=== PATIENT | male | born 1950 | race Caucasian/White ===

== ENCOUNTER 2017-10-30 09:24 | Day surgery (SDC) | payer MEDICARE, OTHER ==
[2017-10-30] VITALS (13 sets, daily range): BP systolic 135–155; BP diastolic 83–97; PULSE 62–102; RESP 16–22; TEMP 98–98.6; O2SAT 93–96
[~2017-10-30] VITALS: Ht 175.3 cm; Wt 133.0 kg
[~2017-10-30 09:24] MED LIST: ASPI-147 PO; ATOR40TA16 PO; LOSA100T PO; PRAS10TA PO
[2017-10-30] MEDS ORDERED: IOHEXOL 350 MG/ML 100 ML BTL (for Cath Lab) OTHER ONE (09:25)
[2017-10-30] MEDS ORDERED: METO1TAB42 PO (10:19)
[2017-10-30] MEDS ORDERED: CARB200T PO (10:19)
[2017-10-30 10:45] LABS: AUTOMATED NEUTROPHIL # 3.8 TH/MM3 (1.8-7.7); BASOPHIL % 0.4 % (0.0-2.0); EOSINOPHIL # 0.2 TH/MM3 (0-0.4); EOSINOPHIL % 2.9 % (0.0-4.0); HEMATOCRIT 38.9 % (39.0-51.0); HEMO FLAGS DIFF FINAL; LYMPH % 29.4 % (9.0-44.0); LYMPHOCYTE # 2.1 TH/MM3 (1.0-4.8); MEAN CELL VOLUME 96.7 FL (80.0-100.0); MEAN CORPUSCULAR HEMOGLOBIN 33.6 PG (27.0-34.0); MEAN CORPUSCULAR HGB CONC 34.8 % (32.0-36.0); MONO % 13.3 % (0.0-8.0); PLATELET COUNT 155 TH/MM3 (150-450); RED BLOOD COUNT 4.02 MIL/MM3 (4.50-5.90); RED CELL DISTRIBUTION WIDTH 13.2 % (11.6-17.2); WHITE BLOOD COUNT 7.1 TH/MM3 (4.0-11.0)
[2017-10-30] MEDS ORDERED: MIDAZOLAM HCL 2 MG/2 ML VIAL ONE (10:52)
[2017-10-30] MEDS ORDERED: HEPARIN-NS/PF INJ 1,000 ML ONE (10:52)
[2017-10-30] MEDS ORDERED: HEPARIN SODIUM - IV 10,000 UNITS/10 ML VIAL ONE (10:53)
[2017-10-30] MEDS ORDERED: NITROGLYCERIN INJ 5 ML ONE (10:53)
[2017-10-30] MEDS ORDERED: VERAPAMIL HCL 5 MG/2 ML VIAL ONE (10:53)
[2017-10-30 10:59] LABS: APTT (PATIENT) 26.6 SEC (24.3-30.1); PROTHROMBIN TIME - PATIENT 10.5 SEC (9.8-11.6)
[2017-10-30 11:05] LABS: BICARBONATE 29.2 MEQ/L (21.0-32.0); POTASSIUM 3.9 MEQ/L (3.5-5.1)
[2017-10-30] MEDS ORDERED: PRASUGREL 10 MG TAB ONE (12:19)
--- NOTE | 2017-10-30 12:49 | CATHPROC ---
SIPX HIS Report Study Information Study Number Admission Scheduled Start Study Start [id number] Oct 30 2017 9:24AM 10/30/2017 Oct 30 2017 10:32AM [place] [facility] Cardiac Catheterization Admit Source Facility Department Other [facility] - Associate Application Developer Physician and Clinical Staff Initial Reece Martins Aircraft Delivery Checker Marsha Fox BSN Aircraft Delivery Checker Hal Kemp,NURIS Recorder Carri Cagle,RT(R) (BS) Recorder Flower Montes RCIS TECH2 Scrub Jose F Lynn,RT(R) Procedures Performed Procedure Location (Site) Vessel Name Coronary Angiograms LCA Left Coronary Coronary Angiograms RCA Right Coronary Drug Eluting Inflatio LAD Mid Left Coronary PTCA LAD Mid Left Coronary PTCA LAD Prox Left Coronary PTCA ADD ON'S Wire insertion Radial (right) Radial Art. Equipment Time Tassel Maker Description Size Mfg Part Number Used/Scraped WIRE, BALANCE MIDDLEWEIGHT [id number] 11:37 [employer] 190CM Used 190CM *[id number] TRANSDUCER, TRUWAVE [id number] 10:33 SAWANT VILLALOBOS * Used W/STOCKCOCK *[id number] [id number] *[id number] *[id number] *[id number] 10:33 [employer] Cl[employer] PACK, CCL CUSTOM * Used *[id number] 10:33 [employer] Cl[employer] SUPPORT, ARTERIAL ADULT [id number] *[id number] Used [id number] 11:41 [employer]TR[employer] BALLOON, 2.5 X 12MM EUPHORA 12MM Used *[id number] BALLOON, 3.0 X 12MM NC [id number] 12:08 MEDTRONIC 12MM Used EUPHORA *[id number] BALLOON, 3.5 X 8MM NC [id number] 12:13 MEDTRONIC 8MM Used EUPHORA *[id number] 11:29 MEDTRONIC JL 3.5 DXTERITY CATHETER FR 5 [id number] Used [id number] 12:02 MEDTR[employer]IC STENT, 3.0 18MM DARIAN 3.0 18MM Used *[id number] 11:36 [employer]TR[employer]IC/AVE EBU 3.5 Z2 GUIDE CATHETER FR 6 Used *[id number] 11:35 [employer] 30 SYED INDEFLATOR Used *[id number] BAND, RADIAL COMPRESSION TR [id number] 12:19 [employer] 29CM Used LARGE 29 *[id number] 10:33 [employer] WIRE, EXCHANGE 260CM 3MMJ 260CM Used *[id number] 10:33 NAMIC MANIFOLD, 4 PORT * Used *[id number] 10:33 [employer] OMNIPAQUE, 350 MG, 150ML 150ML [id number] Used [id number] 10:33 [facility] BLANKET,WARM AIR CCL * Used *[id number] SHEATH, FR6 TRANSRADIAL RM*[id number] 10:33 [employer] FR 6 Used SLENDER 10CM *[id number] Equipment Model, Serial, Lot Number and Expiration Data Description Model Number Serial Number Lot Number Expiration Date BALLOON, 3.5 X 8MM NC EUPHORA [id number] 06-21-2019 STENT, 3.0 18MM DARIAN 8UX [id number] 06-26-2019 History: Current Medications Medication Dosage/Unit Route Frequency Last Date/Time Taken Beta Leann Statins (any) EFFIENT History: Allergies Allergy Reaction No Known Allergies History: Risk Factors Family History of Hypertension Dyslipidemia Previous RI Previous Heart Failure Premature CAD Yes Yes Yes No No Prior Valve Prior PCI Prior PCIDate Prior CABG Surgery No Yes 09/18/2016 No Cerebrovascular Peripheral Artery Chronic Lung On Dialysis Diabetes Disease Disease Disease No No No No No History: Stress Tests Stress or Imaging Studies Performed Yes Standard Exercise Stress Test No Stress Echo No Stress Test SPECT Stress Test SPECT Result Stress Test SPECT Ischemia Risk/Extent Yes Positive Intermediate Stress Test CMR No Cardiac CTA Coronary Calcium Score No No History: Other Current Smoker No Labs Hgb (g/dl) Hct (%) WBC (l/cumm) Platelets (thousands) 11.60-17.00 35.00-51.00 4.00-11.00 150.00-450.00 13.5 38.9 7.1 155 Glucose (mg/dl) BUN (mg/dl) Creatinine (mg/dl) BUN:Creatinine (1:x) 74.00-106.00 7.00-18.00 0.50-1.30 10.00-20.00 95 14 0.8 17.5 INR (PTT:PT) 0.90-1.10 1 CPK-MB (ng/ML) 0.50-3.60 Not Drawn Medication Medication Total Dose (Bolus/Oral) Medication Total Dosage/Unit 1% XYLOCAINE 1 mL EFFIENT 60 mg FENTANYL 25 mcg HEPARIN 5000 units NTG (IC) 200 mcg OXYGEN 2 l/min RADIAL COCKTAIL 1 units VERSED 0.5 mg Medications (Bolus/Oral) Medication Time Given Dosage/Unit Administered By Reason 10/30/2017 11:17:42 VERSED 0.5 mg Marsha Fox AM 0.5 mg VERSED given in lab by Marsha Fox BSN in Left Antecubital via Peripheral IV. 10/30/2017 11:18:09 FENTANYL 25 mcg Marsha Fox AM 25 mcg FENTANYL given in lab by Marsha Fox BSN in Left Antecubital via Peripheral IV. 10/30/2017 11:18:15 1% XYLOCAINE 1 mL Reece Rojas AM 1 mL 1% XYLOCAINE given in lab by Reece Rojas in Right Radial via Subcutaneous. 10/30/2017 11:20:01 Ntg 200mcg Verapamil 2.5mg Heparin RADIAL COCKTAIL 1 units Reece Rojas AM 3000U 1 units RADIAL COCKTAIL given in lab by Reece Rojas via Radial. Reason: Ntg 200mcg Verapamil 2.5mg Heparin 5000U. 10/30/2017 11:36:02 HEPARIN 3000 units Marsha Fox AM 3000 units HEPARIN given in lab by Marsha Fox BSN in Left Antecubital via Peripheral IV. 10/30/2017 11:42:55 OXYGEN 2 l/min Hal Kemp AM 2 l/min OXYGEN given in lab by Hal Kemp RN via Nasal. 10/30/2017 11:58:51 HEPARIN 2000 units Hal Kemp AM 2000 units HEPARIN given in lab by Hal Kemp RN in Left Antecubital via Peripheral IV. Ordered by Reece Rojas. 10/30/2017 12:10:03 NTG (IC) 200 mcg Reece Rojas 200 mcg NTG (IC) given in lab by Reece Rojas via Intra-coronary. Ordered by Reece Rojas. 10/30/2017 12:26:14 EFFIENT 60 mg Marsha Fox PM 60 mg EFFIENT given in lab by Marsha Fox BSN via Oral. Ordered by Reece Rojas Medication (Drip) Medication Time Given Dosage/Unit Concentration/Unit Diluent (ml) Solution 10/30/2017 10:52:06 IV Solutions 0 mL (IV) 500 NaCl .9 AM IV Solutions given in lab by Marsha Fox BSN in Left Antecubital via Peripheral IV. Pump/Dri p Flow = 30 ml/hr using NaCl .9. 10/30/2017 11:23:46 MARIXA-SYNEPHRINE 50 mcg AM 50 mcg MARIXA-SYNEPHRINE given in lab by Marsha Fox BSN in Left Antecubital via Peripheral IV. Ordered by Reece Rojas 10/30/2017 11:24:52 MARIXA-SYNEPHRINE 50 mcg AM 50 mcg MARIXA-SYNEPHRINE given in lab by Marsha Fox BSN in Left Antecubital via Peripheral IV. Ordered by Reece Rojas 10/30/2017 11:31:08 MARIXA-SYNEPHRINE 50 mcg AM 50 mcg MARIXA-SYNEPHRINE given in lab by Marsha Fox BSN in Left Antecubital via Peripheral IV. Ordered by Reece Rojas Initial Case Assessment Cardiovascular HR Rhythm NIBP Chest Pain 65 reg 151/97 0 Edema Present Skin color Skin Moderate Normal Warm Dry Circulatory - Right Pulses Posterior Tibial Femoral Radial 3 3 3 Scale (0,1,2,3,4,d) Circulatory - Left Pulses Posterior Tibial Femoral Radial 3 3 Scale (0,1,2,3,4,d) Circulatory - Lower Extremities Color Lower Right Color Lower Left Normal Normal Neurological State Oriented to time-place- Alert Moves all extremities person Respiration - General Respiration Rate SpO2 (%) (B/min) 14 95 Final Case Assessment Cardiovascular HR Rhythm NIBP Chest Pain 56 sr 158/97 0 Circulatory - Right Pulses Dorsalis Pedis Posterior Tibial Femoral Radial 0 3 2 2 Scale (0,1,2,3,4,d) Scale (0,1,2,3,4,d) Neurological State Oriented to time-place- Alert Moves all extremities person Respiration - General Respiration Rate SpO2 (%) (B/min) 10 99 Chronological Log Time Study Chronological Log 10:45:55 Patient arrived via Bed. 10:45:57 Patient Name, D.O.B, / Armband Verified By R.N. 10::59 Consent signed by the physician and the patient and verified by the Associate Application Developer staff. 10:46:00 Pre-op and post- op instructions given; patient acknowledges understanding of instructions. 10:46:01 Verbal Stimulation=2 Physical Stimulation=2 Airway=2 Respiration=2 TOTAL=8. (0=absent, 1=li mited, 2=present) Vitals capture started with the following parameters, Patient=Adult, Interval=5 min, Initial Pr zgwdfd=530 mmHg, 10:51:50 Deflation Rate=5 mmHg, Cuff placed on Left Arm 10::53 Presedation assessment performed by Associate Application Developer RN. 10::57 Allens test performed on the right radial and ulnar artery. 10::59 Patient has been NPO for More than 6Hrs. 10:52:00 Skin Breakdown none per pt 10:52:01 Patient Warmer Placed on the Table. 10:52:02 Chrystal Prominences Protected 10:52:05 A # 20 IV was noted in the Antecubital (left). Grade = 0 IV Solutions given in lab by Marsha Fox BSN in Left Antecubital via Peripheral IV. Pu mp/Drip Flow = 30 ml/hr 10:52:06 using NaCl .9. 10:52:06 History and physical on the chart or being dictated. Assessment: Initial Case, HR=65 BPM, Rhythm=reg, HKFP=707/97 mmhg, Chest Pain=0, Edema=Mod, Col or=Normal, Skin = Warm, Dry Right Pulses: Post Tib=3, Femoral=3, Radial=3 Left Pulses: Post Tib=3, Femoral=3 10:52:08 Lower Right Extremities: Color=Normal Lower Left Extremities: Color=Normal Neurological: State=Alert, Ox3, DAVIS Respiration: Resp=14 B/min, SpO2=95 % 10:52:30 HR=65 bpm, PZTQ=339/97 mmhg, SpO2=94.0 %, Resp=14 B/min, Pain=0, Roel=10, Jiménez=2 10:57:18 Right Radial and groin(s) prepped with 2% chlorhexidine, and draped after a 3 min. waiting time. 10:57:31 HR=66 bpm, GRRH=174/97 mmhg, SpO2=95 %, Resp=27 B/min, Pain=0, Roel=10, Jiménez=2 11:01:09 Reference ECG taken 11:02:32 HR=65 bpm, EWFR=213/98 mmhg, SpO2=95 %, Resp=12 B/min, Pain=0, Role=10, Jiménez=2 11:03:32 Pressure channel 1 zeroed. 11:07:31 HR=65 bpm, NDYR=656/100 mmhg, SpO2=94.0 %, Resp=16 B/min, Pain=0, Roel=10, Jiménez=2 11:12:34 HR=63 bpm, PVWZ=409/100 mmhg, SpO2=94.0 %, Resp=11 B/min, Pain=0, Roel=10, Jiménez=2 Time Out. Correct patient, correct procedure, correct physician, power injector not loaded with contrast with surgical 11:16:52 team present. Time Out Concurred by MD and individual staff in procedure. 11:16:59 Case Start 11:17:35 HR=66 bpm, CSWL=705/102 mmhg, SpO2=95.0 %, Resp=14 B/min, Pain=0, Roel=10, Jiménez=2 11:17:42 0.5 mg VERSED given in lab by Marsha Fox BSN in Left Antecubital via Peripheral I V. 11:18:09 25 mcg FENTANYL given in lab by Marsha Fox BSN in Left Antecubital via Peripheral IV. 11:18:15 1 mL 1% XYLOCAINE given in lab by Reece Rojas in Right Radial via Subcutaneous. 11:19:00 Access site was right Radial Artery. A SHEATH, FR6 TRANSRADIAL SLENDER 10CM FR 6 was advanced into the Radial (right) using the Perc utaneous 11:19:12 technique. 1 units RADIAL COCKTAIL given in lab by Reece Roajs via Radial. Reason: Ntg 200mcg Vera pamil 2.5mg 11:20:01 Heparin 5000U. A JR 4.0 INFINITI CATHETER FR 5 was advanced over a wire. OMNIPAQUE, 350 MG, 150ML 150ML was us ed for 11:20:24 injections. Recorded Pressure: LV, HR=71, Condition=Condition 1 11:22:04 (Left Ventricle) LV 82/2/7 11:22:36 HR=64 bpm, NIBP=78/42 mmhg, SpO2=89.0 %, Resp=13 B/min, Pain=0, Roel=10, Jiménez=2 50 mcg MARIXA-SYNEPHRINE given in lab by Marsha Fox BSN in Left Antecubital via Peripher al IV. Ordered by 11:23:46 Reece Rojas 11:24:35 NIBP STAT measurement started. 50 mcg MARIXA-SYNEPHRINE given in lab by Marsha Fox BSN in Left Antecubital via Peripher al IV. Ordered by 11:24:52 Reece Rojas 11:25:08 HR=61 bpm, NIBP=77/43 mmhg, SpO2=94.0 %, Resp=14 B/min, Pain=0, Roel=10, Jiménez=2 11:25:55 Pressure channel 1 zeroed. 11:27:21 The RCA was injected and visualized at various angles. OMNIPAQUE, 350 MG, 150ML 150ML used . 11:27:27 HR=60 bpm, NIBP=69/42 mmhg, SpO2=96.0 %, Resp=12 B/min, Pain=0, Roel=10, Jiménez=2 After removing the current catheter a JL 3.5 DXTERITY CATHETER FR 5 was advanced over a WIRE, E XCHANGE 260CM 11:28:22 3MMJ 260CM. 50 mcg MARIXA-SYNEPHRINE given in lab by Marsha Fox BSN in Left Antecubital via Peripher al IV. Ordered by 11:31:08 Reece Rojas 11:31:35 The LCA was injected and visualized at various angles. OMNIPAQUE, 350 MG, 150ML 150ML used . 11:32:26 HR=59 bpm, NIBP=83/42 mmhg, SpO2=93.0 %, Resp=9 B/min, Pain=0, Roel=10, Jiménez=2 11:34:57 OMNIPAQUE, 350 MG, 150ML 150ML and 30 SYED INDEFLATOR added. 11:36:02 3000 units HEPARIN given in lab by Marsha Fox BSN in Left Antecubital via Periphe ral IV. 11:36:52 The Aircraft Delivery Checker is being relieved by Hal Kemp, NURIS. 11:38:02 HR=62 bpm, NIBP=97/58 mmhg, Resp=13 B/min, Pain=0, Roel=10, Jiménez=2 After removing the current catheter a EBU 3.5 Z2 GUIDE CATHETER FR 6 was advanced over a WIRE, EXCHANGE 11:38:24 260CM 3MMJ 260CM. 11:41:03 A WIRE, BALANCE MIDDLEWEIGHT 190CM 190CM was inserted via Radial (right). 11:42:30 HR=61 bpm, NBKQ=211/55 mmhg, Resp=13 B/min, Pain=0, Roel=10, Jiménez=2 11:42:55 2 l/min OXYGEN given in lab by Hal Kemp, RN via Nasal. 11:48:06 HR=58 bpm, OGHI=228/78 mmhg, SpO2=97.0 %, Resp=8 B/min, Pain=0, Roel=10, Jiménez=2 11:50:15 Wire removed After removing the current catheter a JL 3.5 GUIDE CATHETER FR 6 was advanced over a WIRE, EXCH HAFSA 260CM 11:50:47 3MMJ 260CM. 11:52:34 HR=59 bpm, WSJJ=119/82 mmhg, SpO2=99.0 %, Resp=10 B/min, Pain=0, Roel=10, Jiménez=2 11:53:51 A WIRE, BALANCE MIDDLEWEIGHT 190CM 190CM was inserted via Radial (right). 11:56:57 ACT (Normal Range 90-180) = 261 A BALLOON, 2.5 X 12MM EUPHORA 12MM was inserted over WIRE, BALANCE MIDDLEWEIGHT 190CM 190CM via the 11:57:09 LAD Mid. 11:57:35 HR=58 bpm, MJST=297/89 mmhg, SpO2=98.0 %, Resp=13 B/min A BALLOON, 2.5 X 12MM EUPHORA 12MM over a WIRE, BALANCE MIDDLEWEIGHT 190CM 190CM in the LAD Mid was 11:58:13 inflated using a 30 SYED INDEFLATOR at 8 syed for 18 sec. 2000 units HEPARIN given in lab by Hal Kemp, NURIS in Left Antecubital via Peripheral IV. Or dered by Reece Rojas 11:58:51 G. 11:59:34 Balloon Removed. A STENT, 3.0 18MM DARIAN 3.0 18MM was advanced through a JL 3.5 GUIDE CATHETER FR 6 over a WIRE, BALANCE 12:00:49 MIDDLEWEIGHT 190CM 190CM. A STENT, 3.0 18MM DARIAN 3.0 18MM was deployed using a 30 SYED INDEFLATOR at 12 atmospheres for 30 seconds in 12:02:27 the LAD Mid. 12:02:36 HR=60 bpm, NRCU=550/93 mmhg, SpO2=99.0 %, Resp=12 B/min A BALLOON, 3.0 X 12MM NC EUPHORA 12MM was inserted over WIRE, BALANCE MIDDLEWEIGHT 190CM 190CM via 12:05:28 the LAD Mid. A BALLOON, 3.0 X 12MM NC EUPHORA 12MM over a WIRE, BALANCE MIDDLEWEIGHT 190CM 190CM in the LAD Mid 12:06:41 was inflated using a 30 SYED INDEFLATOR at 12 syed for 10 sec. 12:07:38 HR=59 bpm, DTUO=642/100 mmhg, SaD9=270.0 %, Resp=11 B/min A BALLOON, 3.0 X 12MM NC EUPHORA 12MM over a WIRE, BALANCE MIDDLEWEIGHT 190CM 190CM in the LAD Prox 12:08:23 was inflated using a 30 SYED INDEFLATOR at 16 syed for 27 sec. 12:09:24 Balloon Removed. 12:10:03 200 mcg NTG (IC) given in lab by Reece Rojas via Intra-coronary. Ordered by Reece Little. 12:12:41 HR=64 bpm, NMNT=604/95 mmhg, ArA3=509.0 %, Resp=12 B/min A BALLOON, 3.5 X 8MM NC EUPHORA 8MM was inserted over WIRE, BALANCE MIDDLEWEIGHT 190CM 190CM vi a the 12:13:32 LAD Prox. A BALLOON, 3.5 X 8MM NC EUPHORA 8MM over a WIRE, BALANCE MIDDLEWEIGHT 190CM 190CM in the LAD Pr ox was 12:14:56 inflated using a 30 SYED INDEFLATOR at 14 syed for 20 sec. A BALLOON, 3.5 X 8MM NC EUPHORA 8MM over a WIRE, BALANCE MIDDLEWEIGHT 190CM 190CM in the LAD Pr ox was 12:15:40 inflated using a 30 SYED INDEFLATOR at 14 syed for 13 sec. 12:17:34 Balloon Removed. 12:17:40 HR=61 bpm, PMSS=357/94 mmhg, SpO2=99.0 %, Resp=9 B/min 12:17:44 Wire and Guide Catheter was removed 12:18:25 Case End Radial Compression Device Used. 17 mLs of air placed in BAND, RADIAL COMPRESSION TR LARGE 29 29 CM. Affected 12:20:37 hand 100 % O2 saturation. 12:22:41 HR=58 bpm, FUFT=085/96 mmhg, FjP5=746.0 %, Resp=12 B/min 12:26:14 60 mg EFFIENT given in lab by Marsha Fox BSN via Oral. Ordered by Barry Rojas 12:27:40 HR=58 bpm, DROG=367/97 mmhg, SpO2=99.0 %, Resp=8 B/min 12:29:02 No case complications noted. 12:29:04 Cine recording checked. Assessment: Final Case, HR=56 BPM, Rhythm=sr, LNUO=094/97 mmhg, Chest Pain=0 Right Pulses: Ridge Ped=0, Post Tib=3, Femoral=2, Radial=2 12:29:06 Neurological: State=Alert, Ox3, DAVIS Respiration: Resp=10 B/min, SpO2=99 % 12:30:08 Implantable Device card placed in patient's chart. 12:32:21 Vitals capture stopped. 12:34:11 Patient moved to bed 12:34:46 Patient transported to DOCU 12:35:03 Bedside Report will be given. End Study - Contrast Media Used In Study Contrast Total Opened (mL) Total Used (mL) Total Wasted (mL) Omnipaque 160 160 0 End Study - Maximum Contrast Load Max Contrast Load (mL) 831.3 End Study - Radiation Exposure Fluoro Time (minutes) 16.0 End Study - Sheaths Sheaths Pulled By Sheath Hold Time (min) Jose F Lynn End Study - Patient Disposition Complications Transferred To Interventional Outcome No Telemetry Bed successful
[2017-10-30] MEDS ORDERED: MISC INFORMATION XX ONE (13:00)
--- NOTE | 2017-10-30 13:36 | MA ---
cc: REECE VELARDE DO DATE 10/30/2017 PROCEDURE Left heart catheterization, coronary angiogram, moderate sedation 60 minutes, Michael drug-eluting stent (3 x 18) to the mid-LAD, balloon angioplasty in-stent restenosis proximal LAD. PREPROCEDURE DIAGNOSIS Preoperative evaluation, abnormal stress test. POSTPROCEDURE DIAGNOSIS Coronary artery disease status post balloon angioplasty in-stent restenosis of LAD, status post Cisco drug-eluting stent (3 x 18) to the mid-LAD. MEDICATIONS 1. Versed 0.5 mg 2. Fentanyl 25 mcg 3. Heparin 10,000 units 4. Nitro 200 mcg 5. Verapamil 2.5 mg 6. Arnol-Synephrine 150 mcg 7. Effient 60 mg CONTRAST 160 cc FLUOROSCOPY 16 minutes ANESTHESIA Moderate sedation 60 minutes ESTIMATED BLOOD LOSS 10 cc PROCEDURAL SUMMARY Glo Sands is a pleasant 66-year-old male who sees my partner, Dr. Bardales, in the office and is being evaluated for possible knee surgery. As he had stenting done around one year ago and the patient is overall sedentary, but gets shortness of breath with activity, it was felt reasonable that he undergo stress testing. During this, he was found to have inferior and anterior ischemia in the areas where he previously was stented. Because of this, he was recommended cardiac catheterization. In discussions with him and his preoperatively, if stenting is needed, they were okay with putting off his knee surgery for up to a year. The risks, benefits and alternatives were explained to him and he consented as such. He was brought to lab and prepped in the usual sterile fashion. The right radial artery was accessed using a modified Seldinger technique and placement of a 5/6 [place] slender sheath. This was easily aspirated and flushed. A JR-4 was advanced over a J-wire to the ascending aorta and across the aortic valve for measurement of left ventricular pressure. This was pulled back across the aortic valve showing no significant gradient of aortic stenosis. At this time, the patient had significant hypotension most likely due to sedation meds as well as the radial cocktail and so he was given 150 mcg in 50 mcg doses of Arnol-Synephrine. JR-4 was used for selective angiography of the right coronary artery system. This was exchanged out for a JL-3.5 which was used for selective angiography of the left coronary artery. At this time, there was concern for LAD disease both in the previous stent in the proximal portion as well as de randall disease in the midportion. INTERVENTION The patient was given heparin as an anticoagulant. I attempted to engage an EBU 3.5 guide catheter, but was unable to wire the LAD was from this and so this was exchanged for a JL-3.5 guide. ACT was checked and 260 and so he was given additional heparin. A BMW wire was advanced down to the mid-LAD. A Compliant balloon (2.5 x 12) was then used to pre-dilate the mid-LAD lesion. An Michael drug-eluting stent (3 x 18) was then inflated over the lesion. A noncompliant balloon (3 x 12) eight) was then used to post dilate the stent. This was then used on the in-stent restenosis of the proximal LAD stent. Angiogram of this area shows still some mild disease in the previous stent and so a noncompliant balloon (3 x 8) was then inflated over the length of the stent. The BMW wire was removed. Final angiogram shows resolution of in-stent restenosis, as well as well opposed mid LAD stent with no perforations or dissections. The guide catheter was removed over a J-wire. A radial band was placed over the arteriotomy site for hemostasis. The patient was given Effient 60 mg as he has not been on it for the past 10 days and needed to be reloaded. The patient left the animal laboratory technician cardiovascularly stable. FINDINGS Left main. A normal sized vessel with 20% disease in the midportion. It bifurcates into an LAD and circumflex. LAD. A normal-sized vessel with a stent in the proximal portion which has 70% in-stent restenosis. The midportion of the LAD has an 80% lesion and no disease distally. At the takeoff of this 80% lesion, there is a diagonal which is 100% occluded and fills via collaterals. Left circumflex. A normal sized vessel with no significant disease. It supplies two obtuse marginales with the second one being large and going to the apex. There is 20% disease in the proximal portion of the second obtuse marginal. RCA. A normal-sized vessel. Stent noted in the midportion has 10% in-stent restenosis. Overall, it is a dominant vessel with no significant disease distally. LVEDP 7 IMPRESSIONS 1. Preoperative evaluation for knee surgery. 2. Abnormal stress test with the anterior and inferior ischemia (intermediate risk). 3. Coronary artery disease status post balloon angioplasty of in-stent restenosis of the proximal LAD, status post Cisco drug-eluting stent (3 x 18) to the mid-LAD. RECOMMENDATIONS 1. Mr. Sands underwent balloon angioplasty of in-stent restenosis as well as drug-eluting stent placement in de randall disease of the LAD and because of this, he will be placed on aspirin and Effient therapy. As he has been off Effient therapy for 10 days, he will be reloaded with this. 2. He will be watched overnight and if stable in the morning discharged home for followup with Dr. Bardales. 3. He will have to hold off on his knee surgery most likely at least six months, but ideally 12 months. Thank you for allowing me to see Asad Sands if there are any questions, please do not hesitate to call. Reece Velarde DO VGP/DJL /12:34 PM /1:03 PM
--- NOTE | 2017-10-30 14:45 | EKG ---
Date Performed: 10/30/2017 Time Performed: 10:32:04 PTAGE: 66 years EKG: Sinus rhythm . Possible left anterior fascicular block Borderline ECG NO PREVIOUS TRACING DOCTOR: Ranjeet Schaeffer Interpretating Date/Time 10/30/2017 14:44:05
[2017-10-30] MEDS: carBAMazepine 200 MG TAB PO SCH (19:44)
[2017-10-30] MEDS ORDERED: ATORVASTATIN 40 MG TAB PO SCH (21:00)
[2017-10-31] VITALS (10 sets, daily range): BP systolic 121–147; BP diastolic 72–97; PULSE 64–76; RESP 16–20; TEMP 97.8–98.6; O2SAT 95–96
[2017-10-31 06:16] LABS: AUTOMATED NEUTROPHIL # 4.3 TH/MM3 (1.8-7.7); BASOPHIL % 0.2 % (0.0-2.0); EOSINOPHIL # 0.2 TH/MM3 (0-0.4); EOSINOPHIL % 2.2 % (0.0-4.0); HEMATOCRIT 38.1 % (39.0-51.0); HEMO FLAGS DIFF FINAL; LYMPHOCYTE # 2.1 TH/MM3 (1.0-4.8); MEAN CELL VOLUME 97.3 FL (80.0-100.0); MEAN CORPUSCULAR HEMOGLOBIN 33.7 PG (27.0-34.0); MEAN CORPUSCULAR HGB CONC 34.7 % (32.0-36.0); MONO % 14.3 % (0.0-8.0); NEUT % 56.3 % (16.0-70.0); PLATELET COUNT 148 TH/MM3 (150-450); RED BLOOD COUNT 3.92 MIL/MM3 (4.50-5.90); RED CELL DISTRIBUTION WIDTH 13.4 % (11.6-17.2); WHITE BLOOD COUNT 7.7 TH/MM3 (4.0-11.0)
[2017-10-31 06:48] LABS: BICARBONATE 29.6 MEQ/L (21.0-32.0); POTASSIUM 4.1 MEQ/L (3.5-5.1)
[2017-10-31] MEDS: carBAMazepine 200 MG TAB PO SCH (08:55)
[2017-10-31] MEDS ORDERED: LOSARTAN 50 MG TAB PO SCH (09:00)
[2017-10-31] MEDS ORDERED: ASPIRIN 81 MG CHEW TAB PO SCH (09:00)
[2017-10-31] MEDS ORDERED: METOPROLOL SUCCINATE 25 MG EXTENDED RELEASE TAB PO SCH (09:00)
[2017-10-31] MEDS ORDERED: PRASUGREL 10 MG TAB PO SCH (09:00)
--- NOTE | 2017-10-31 10:23 | PD.CARD.PN ---
Subjective Subjective Remarks Doing well No chest pain/SOB Objective Medications Current Medications Medications (Trade) Dose Ordered Sig/Shay Route Start Time Stop Time Status Last Admin (Aspirin Chew) 81 mg DAILY PO 10/31/17 09:00 10/31/17 08:55 (Effient) 10 mg DAILY PO 10/31/17 09:00 10/31/17 08:55 (Lipitor) 40 mg HS PO 10/30/17 21:00 10/30/17 19:43 (TEGretol) 200 mg BID PO 10/30/17 21:00 10/31/17 08:55 (Cozaar) 100 mg DAILY PO 10/31/17 09:00 10/31/17 08:55 (Toprol Xl) 25 mg DAILY PO 10/31/17 09:00 10/31/17 08:55 Vital Signs / I&O Vital Signs Date Time Temp Pulse Resp B/P (MAP) Pulse Ox O2 Delivery O2 Flow Rate FiO2 10/31/17 09:14 98.0 64 17 147/97 (114) 96 10/31/17 07:38 97.8 74 16 139/82 (101) 95 10/31/17 07:00 66 10/31/17 05:00 68 10/31/17 04:00 66 10/31/17 03:03 98.6 76 20 121/72 (88) 96 10/31/17 03:00 71 10/31/17 02:00 72 10/31/17 01:00 68 10/31/17 00:00 68 10/30/17 23:03 98.6 72 20 138/84 (102) 96 10/30/17 23:00 70 10/30/17 22:00 72 10/30/17 21:00 102 10/30/17 20:00 68 10/30/17 19:51 98.4 70 20 150/90 (110) 96 10/30/17 19:00 68 10/30/17 18:00 68 10/30/17 18:00 62 20 155/89 (111) 94 10/30/17 18:00 64 21 139/92 (108) 94 10/30/17 17:45 63 18 148/97 (114) 93 10/30/17 17:30 64 20 151/95 (113) 93 10/30/17 17:15 68 22 136/89 (105) 94 10/30/17 17:00 66 10/30/17 17:00 98.0 66 20 10/30/17 17:00 98.3 66 20 135/83 (100) 93 10/30/17 12:39 96 Room Air I/O 10/30/17 10/30/17 10/30/17 10/31/17 10/31/17 10/31/17 07:00 15:00 23:00 07:00 15:00 23:00 Intake Total 0 ml 240 ml Balance 0 ml 240 ml Intake Oral 0 ml 240 ml # Voids 2 2 # Bowel Movements 1 Physical Exam GENERAL: NAD, AAOx3 SKIN: Warm and dry. HEAD: Atraumatic. Normocephalic. EYES: Pupils equal and round. No scleral icterus. No injection or drainage. ENT: No nasal bleeding or discharge. Mucous membranes pink and moist. NECK: Trachea midline. No JVD. CARDIOVASCULAR: Regular rate and rhythm. RESPIRATORY: No accessory muscle use. Clear to auscultation. Breath sounds equal bilaterally. GASTROINTESTINAL: Abdomen soft, non-tender, nondistended. Hepatic and splenic margins not palpable. MUSCULOSKELETAL: Extremities without clubbing, cyanosis, or edema. No obvious deformities. Right radial no hematoma, neurovascularly intact distally NEUROLOGICAL: Awake and alert. No obvious cranial nerve deficits. Motor grossly within normal limits. Five out of 5 muscle strength in the arms and legs. Normal speech. PSYCHIATRIC: Appropriate mood and affect; insight and judgment normal. Laboratory Laboratory Tests Test 10/31/17 06:02 White Blood Count 7.7 TH/MM3 Red Blood Count 3.92 MIL/MM3 Hemoglobin 13.2 GM/DL Hematocrit 38.1 % Mean Corpuscular Volume 97.3 FL Mean Corpuscular Hemoglobin 33.7 PG Mean Corpuscular Hemoglobin Concent 34.7 % Red Cell Distribution Width 13.4 % Platelet Count 148 TH/MM3 Mean Platelet Volume 7.9 FL Neutrophils (%) (Auto) 56.3 % Lymphocytes (%) (Auto) 27.0 % Monocytes (%) (Auto) 14.3 % Eosinophils (%) (Auto) 2.2 % Basophils (%) (Auto) 0.2 % Neutrophils # (Auto) 4.3 TH/MM3 Lymphocytes # (Auto) 2.1 TH/MM3 Monocytes # (Auto) 1.1 TH/MM3 Eosinophils # (Auto) 0.2 TH/MM3 Basophils # (Auto) 0.0 TH/MM3 CBC Comment DIFF FINAL Differential Comment Blood Urea Nitrogen 18 MG/DL Creatinine 0.79 MG/DL Random Glucose 92 MG/DL Calcium Level 8.0 MG/DL Sodium Level 141 MEQ/L Potassium Level 4.1 MEQ/L Chloride Level 107 MEQ/L Carbon Dioxide Level 29.6 MEQ/L Anion Gap 4 MEQ/L Estimat Glomerular Filtration Rate 98 ML/MIN Assessment and Plan Problem List: (1) CAD (coronary artery disease) ICD Codes: I25.10 - Atherosclerotic heart disease of [place] coronary artery without angina pectoris (2) Abnormal stress test ICD Codes: R94.39 - Abnormal result of other cardiovascular function study Assessment and Plan 1) Abnormal stress test for pre-op eval for knee surgery s/p POBA ISR of prox LAD s/p MICHEAL to mid LAD for de randall lesion ASA/Effient 2) Cardiovascularly stable for discharge 3) Follow up with Dr. Bardales on discharge Reece Rojas DO Oct 31, 2017 10:23
--- NOTE | 2017-11-05 10:10 | PD.CARD.PN ---
Assessment and Plan Problem List: (1) CAD (coronary artery disease) ICD Codes: I25.10 - Atherosclerotic heart disease of [place] coronary artery without angina pectoris (2) Abnormal stress test ICD Codes: R94.39 - Abnormal result of other cardiovascular function study Assessment and Plan Discharge rec showing patient was not on ASA on discharge. I personally discussed with the patient and his during the hospitalization that he should be on ASA and Effient. I called the patient today, and he's been on ASA since discharge. Reece Rojas DO Nov 05, 2017 10:10
== END 2017-10-31 11:02 | disposition home or self-care (01) ==
LOC: HDOC 09:24 → HDIC 09:25 → HCIS 17:12 → HDOC 10-31 11:02
PROVIDERS: ATTEND Nuclear Medicine Nuclear Cardiology
DX: I25.10 Atherosclerotic heart disease of native coronary artery without angina pectoris (principal); I10 Essential (primary) hypertension; E78.5 Hyperlipidemia, unspecified; I73.9 Peripheral vascular disease, unspecified; G47.33 Obstructive sleep apnea (adult) (pediatric)
CPT/HCPCS: 80048; 85002; 85025; 85610; 85730; 92928; 93005; 93458; 99152; 99153; C1725; C1769; C1874; C1887; C1893; J1644; J2250; J3010; Q9967